=== PATIENT | male | born 1980 ===

== ENCOUNTER 2020-12-28 13:43 | Emergency (ER) | payer OTHER ==
[~2020-12-28] VITALS: Ht 172.7 cm; Wt 72.6 kg
== END 2020-12-28 21:43 | disposition home or self-care (01) ==
LOC: ER 13:43
DX: K80.50 Calculus of bile duct without cholangitis or cholecystitis without obstruction (principal)

== ENCOUNTER 2021-01-05 08:10 | Outpatient (CLI) | payer OTHER | END 2021-01-05 08:12 | disposition home or self-care (01) | LOC: LAB 08:10 | PROVIDERS: ATTEND Surgery | DX: R07.89 Other chest pain (principal); R10.84 Generalized abdominal pain; R11.0 Nausea; K80.18 Calculus of gallbladder with other cholecystitis without obstruction ==

== ENCOUNTER 2021-01-11 10:30 | Inpatient (IN) | payer OTHER ==
[~2021-01-11] VITALS: Ht 172.7 cm; Wt 70.3 kg
[2021-01-13] MEDS ORDERED: FAMOTIDINE20 MG (11:54)
[2021-01-14] MEDS ORDERED: ULTRAM50 MG PO (13:16)
== END 2021-01-14 14:08 | disposition home or self-care (01) | DRG 419 ==
LOC: ADM 10:30 → EDSTATUS 10:30 → O/R 01-13 06:17 → SURG 01-13 06:17 → SURH 01-13 08:45 → SURG 01-13 12:01
PROVIDERS: ADMIT Surgery; ATTEND Surgery
PROC: BF522Z0 Other Imaging of Gallbladder using Fluorescing Agent, Intraoperative (ICD-10-PCS; 2021-01-13)
PROC: 0FT44ZZ Resection of Gallbladder, Percutaneous Endoscopic Approach (ICD-10-PCS; principal; 2021-01-13 08:45)
DX: K80.10 Calculus of gallbladder with chronic cholecystitis without obstruction (principal); Z20.822 Contact with and (suspected) exposure to COVID-19